=== PATIENT | female | born 1995 | race Caucasian/White ===

== ENCOUNTER 2024-04-22 22:11 | Emergency (ER) | payer MEDICAID ==
[~2024-04-22] VITALS: Ht 172.7 cm; Wt 127.7 kg
[2024-04-22 22:15] VITALS: BP 141/85; PULSE 74; RESP 16; TEMP 98.2; O2SAT 74
[2024-04-23] MEDS ORDERED: HYDR-4062 PO (01:30)
[2024-04-23] MEDS ORDERED: AMOX500C2 PO (01:30)
[2024-04-23] MEDS ORDERED: IBUP-1554 PO (01:30)
[2024-04-23] MEDS: HYDROCODONE/ACETAMINOPHEN 5-325 MG TABLET PO ONE (01:50)
== END 2024-04-23 02:19 | disposition home or self-care (01) ==
LOC: EMS 22:11
DX: K04.7 Periapical abscess without sinus (principal); J45.909 Unspecified asthma, uncomplicated; K21.9 Gastro-esophageal reflux disease without esophagitis; I10 Essential (primary) hypertension; Z91.030 Bee allergy status
CPT/HCPCS: 99283